=== PATIENT | female | born 1930 | race Caucasian/White ===

== ENCOUNTER 2020-04-06 19:34 | Observation (INO) ==
[~2020-04-06 19:34] MED LIST: Anticoagulation Consult 1 Each MC ONE
[2020-04-06 20:19] LABS: Basophils % 0.3 %; Eosinophils # 0.6 K/mcL (0.0-0.6); Eosinophils % 7.8 %; Hematocrit 32.6 % (35.3-44.9); Hemoglobin 10.7 g/dL (11.5-15.4); Immature Granulocytes % 0.4 % (0-4); Lymphocytes # 3.2 K/mcL (0.6-4.6); Mean Corpuscular HGB Conc 32.8 g/dL (31.6-35.5); Mean Corpuscular Hemoglobin 32.9 pg (28.0-33.3); Mean Corpuscular Volume 100.3 fL (83.0-100.0); Mean Platelet Volume 9.5 fL (9.4-12.4); Monocytes # 0.6 K/mcL (0.0-1.3); Monocytes % 8.6 %; Neutrophils # 2.9 K/mcL (1.6-8.9); Platelet Count 197 K/mcL (140-400); Red Blood Count 3.25 M/mcL (3.82-4.97); Red Cell Distribution Width 13.4 % (11.5-14.5); Segmented Neutrophils % 38.9 %; White Blood Count 7.3 K/mcL (4.3-11.1)
[2020-04-06 20:22] LABS: INR 2.7
[2020-04-06] MEDS ORDERED: Aspirin 81 MG TAB.CHEW PO STA (20:38)
[2020-04-06 20:40] LABS: BUN/Creatinine Ratio 25 (6-26); Blood Urea Nitrogen 28 mg/dL (8-23); Calcium 9.6 mg/dL (8.6-10.3); Carbon Dioxide 27 mEq/L (23-29); Chloride 104 mEq/L (98-107); Glucose 105 mg/dL (70-105); Osmolality,Calculated 296 (280-300); Potassium 3.6 mEq/L (3.5-5.1); Sodium 140 mEq/L (136-145); eGFR For African Americans 56 (> 60); eGFR For Non-African Americans 46 (> 60)
[2020-04-06 20:41] LABS: Troponin I < 0.03 ng/mL (< 0.04)
[2020-04-06] MEDS: Nitroglycerin 0.4 MG TAB.SUBL SL PRN ×2 (20:59→21:10)
[2020-04-06] MEDS ORDERED: Naloxone 0.4 MG/ML INJ IVP PRN (22:25)
[2020-04-06] MEDS ORDERED: Ondansetron 4 MG/2 ML VIAL IVP PRN (22:25)
[2020-04-06] MEDS ORDERED: Acetaminophen 325 MG TABLET PO PRN (23:57)
[2020-04-07] MEDS ORDERED: Morphine Sulfate 2 MG/ML SYRINGE IVP PRN
[2020-04-07 03:12] LABS: Basophils % 0.5 %; Eosinophils # 0.6 K/mcL (0.0-0.6); Eosinophils % 8.8 %; Hematocrit 30.7 % (35.3-44.9); Immature Granulocytes % 0.5 % (0-4); Lymphocytes # 2.5 K/mcL (0.6-4.6); Lymphocytes % 39.2 %; Mean Corpuscular HGB Conc 32.6 g/dL (31.6-35.5); Mean Corpuscular Hemoglobin 32.8 pg (28.0-33.3); Mean Corpuscular Volume 100.7 fL (83.0-100.0); Mean Platelet Volume 9.4 fL (9.4-12.4); Monocytes # 0.5 K/mcL (0.0-1.3); Monocytes % 8.1 %; Neutrophils # 2.7 K/mcL (1.6-8.9); Platelet Count 182 K/mcL (140-400); Red Blood Count 3.05 M/mcL (3.82-4.97); Red Cell Distribution Width 13.2 % (11.5-14.5); Segmented Neutrophils % 42.9 %; White Blood Count 6.3 K/mcL (4.3-11.1)
[2020-04-07 03:14] LABS: INR 2.9; Prothrombin Time 33.5 Seconds (9.4-12.1)
[2020-04-07 03:29] LABS: Alanine Aminotransferase 10 Units/L (7-52); Albumin 3.8 g/dL (3.5-5.7); Albumin/Globulin Ratio 1.4 (1.1-2.2); Alkaline Phosphatase 55 Units/L (34-104); Aspartate Amino Transferase 17 Units/L (13-39); BUN/Creatinine Ratio 28 (6-26); Bilirubin,Total 0.3 mg/dL (0.3-1.0); Blood Urea Nitrogen 28 mg/dL (8-23); Calcium 9.6 mg/dL (8.6-10.3); Carbon Dioxide 27 mEq/L (23-29); Chloride 105 mEq/L (98-107); Chol/HDL Ratio 3.8 (0-4.9); Cholesterol 193 mg/dL (< 200); Globulin 2.8 g/dL (2.4-3.5); Glucose 111 mg/dL (70-105); HDL Cholesterol 51 mg/dL (40-59); LDL Cholesterol,Calculated 122 mg/dL (< 100); Magnesium 1.9 mg/dL (1.6-2.6); Osmolality,Calculated 296 (280-300); Potassium 3.9 mEq/L (3.5-5.1); Sodium 140 mEq/L (136-145); Total Protein 6.6 g/dL (6.4-8.9); Triglycerides 100 mg/dL (< 150); eGFR For African Americans > 60 (> 60); eGFR For Non-African Americans 52 (> 60)
[2020-04-07 03:45] LABS: Thyroid Stimulating Hormone 0.674 mcIU/mL (0.340-5.600)
[2020-04-07 03:56] LABS: Folate > 22.3 ng/mL (3.0-16.0); Vitamin B12 565 pg/mL (250-1100)
[2020-04-07] MEDS ORDERED: Regadenoson 0.4 MG/5 ML SYRINGE IVP ONE (06:19)
[2020-04-07] MEDS ORDERED: Cyanocobalamin (B-12) 1,000 MCG TABLET PO SCH (09:00)
[2020-04-07] MEDS ORDERED: Furosemide 40 MG TABLET PO SCH (09:00)
[2020-04-07] MEDS ORDERED: Aspirin Enteric Coated 81 MG Tablet PO SCH (09:00)
[2020-04-07 15:28] VITALS: BP 144/68
[2020-04-07] MEDS ORDERED: Warfarin perPT PO PRN (18:00)
[2020-04-07] MEDS ORDERED: *HR* Warfarin 3 MG TABLET PO ONE (18:00)
== END 2020-04-07 17:45 | disposition home or self-care (01) ==
LOC: 3BNU 19:34 → EMEROOARM 19:34 → SUATTDRO 22:31 → 3BNU 23:23
PROVIDERS: ADMIT Internal Medicine; ATTEND Internal Medicine

== ENCOUNTER 2021-02-12 18:35 | Inpatient (IN) ==
[2021-02-12 19:39] LABS: Basophils % 0.2 %; Eosinophils % 0.4 %; Hematocrit 31.6 % (35.3-44.9); Hemoglobin 10.7 g/dL (11.5-15.4); Immature Granulocytes % 0.5 % (0-4); Lymphocytes # 1.3 K/mcL (0.6-4.6); Lymphocytes % 12.1 %; Mean Corpuscular HGB Conc 33.9 g/dL (31.6-35.5); Mean Corpuscular Volume 97.5 fL (83.0-100.0); Mean Platelet Volume 9.2 fL (9.4-12.4); Monocytes # 0.7 K/mcL (0.0-1.3); Neutrophils # 8.4 K/mcL (1.6-8.9); Platelet Count 257 K/mcL (140-400); Red Blood Count 3.24 M/mcL (3.82-4.97); Red Cell Distribution Width 12.7 % (11.5-14.5); Segmented Neutrophils % 79.8 %; White Blood Count 10.5 K/mcL (4.3-11.1)
[2021-02-12 19:46] LABS: INR 2.5; Prothrombin Time 27.7 Seconds (9.4-12.1)
[2021-02-12 19:49] LABS: Activated Partial Thrombo Time 35.2 Seconds (26.0-36.0)
[2021-02-12 19:59] LABS: Troponin I 0.28 ng/mL (< 0.04)
[2021-02-12] MEDS ORDERED: Aspirin 81 MG TAB.CHEW PO ONE (20:04)
[2021-02-12 20:17] LABS: Alanine Aminotransferase 11 Units/L (7-52); Albumin/Globulin Ratio 1.2 (1.1-2.2); Alkaline Phosphatase 100 Units/L (34-104); Aspartate Amino Transferase 18 Units/L (13-39); BUN/Creatinine Ratio 19 (6-26); Bilirubin,Direct 0.1 mg/dL (0.0-0.2); Bilirubin,Indirect 0.4 mg/dL (0.0-1.0); Bilirubin,Total 0.5 mg/dL (0.3-1.0); Blood Urea Nitrogen 17 mg/dL (8-23); Calcium 10.3 mg/dL (8.6-10.3); Carbon Dioxide 26 mEq/L (23-29); Chloride 101 mEq/L (98-107); Creatine Kinase 56 Units/L (30-223); Ethanol < 10 mg/dL (Less than 10); Globulin 3.3 g/dL (2.4-3.5); Glucose 204 mg/dL (70-105); Osmolality,Calculated 291 (280-300); Potassium 4.8 mEq/L (3.5-5.1); Sodium 137 mEq/L (136-145); Total Protein 7.3 g/dL (6.4-8.9); eGFR For African Americans > 60 (> 60); eGFR For Non-African Americans 58 (> 60)
[2021-02-12 21:34] LABS: Adenovirus Not Detected (Not Detect); Bordetella Pertussis Not Detected (Not Detect); Chlamydophila pneumoniae Not Detected (Not Detect); Coronavirus 229E Not Detected (Not Detect); Coronavirus HKU1 Not Detected (Not Detect); Coronavirus NL63 Not Detected (Not Detect); Coronavirus OC43 Not Detected (Not Detect); Human Metapneumovirus Not Detected (Not Detect); Human Rhinovirus/Enterovirus Not Detected (Not Detect); Influenza A Subtype 2009 H1 Not Detected (Not Detect); Influenza B Not Detected (Not Detect); Mycoplasma pneumoniae Not Detected (Not Detect); Parainfluenza Virus 1 Not Detected (Not Detect); Parainfluenza Virus 2 Not Detected (Not Detect); Parainfluenza Virus 3 Not Detected (Not Detect); Parainfluenza Virus 4 Not Detected (Not Detect); Respiratory Syncytial Virus Not Detected (Not Detect); SARS-CoV-2 Not Detected (Not Detect)
[2021-02-12 23:13] LABS: Bilirubin,Urine Negative (Negative); Blood,Urine Small (Negative); Clarity,Urine Clear (Clear); Color,Urine Yellow (Yellow); Glucose,Urine (UA) Normal (Normal); Hyaline Casts,Urine Few per lpf (None Seen); Ketones,Urine Negative (Negative); Leukocyte Esterase,Urine Moderate (Negative); Mucus,Urine Few per lpf (None-Few); Nitrite,Urine Negative (Negative); Protein,Urine Negative (Neg-Trace); RBC,Urine 0-3 per hpf (0-3); Renal Epithelial Cells,Urine Few per hpf (None-Few); Squamous Epithelial Cell,Urine Few per hpf (None-Few); Transitional Epi Cells,Urine Few per hpf (None-Few); Urobilinogen,Urine Normal (Normal)
[2021-02-12 23:23] LABS: Amphetamine Screen,Urine Negative ng/mL (Cutoff=1000); Barbiturate Screen,Urine Negative ng/mL (Cutoff=200); Benzodiazepines Screen,Urine Negative ng/mL (Cutoff=200); Cannabinoid Screen,Urine Negative ng/mL (Cutoff = 50); Cocaine Screen,Urine Negative ng/mL (Cutoff= 300); Opiate Screen,Urine Negative ng/mL (Cutoff=300); Phencyclidine Screen,Urine Negative ng/mL (Cutoff=25)
[2021-02-13] MEDS ORDERED: Naloxone 0.4 MG/ML INJ IVP PRN (01:02)
[2021-02-13] MEDS ORDERED: Ondansetron 4 MG/2 ML VIAL IVP PRN (01:02)
[2021-02-13] MEDS ORDERED: 0.9 % Sodium Chloride 1,000 ML IVC ONE (05:41)
[2021-02-13 07:25] LABS: Basophils % 0.1 %; Eosinophils # 0.2 K/mcL (0.0-0.6); Hematocrit 30.3 % (35.3-44.9); Hemoglobin 9.9 g/dL (11.5-15.4); Immature Granulocytes % 0.4 % (0-4); Lymphocytes # 1.7 K/mcL (0.6-4.6); Lymphocytes % 24.3 %; Mean Corpuscular HGB Conc 32.7 g/dL (31.6-35.5); Mean Corpuscular Hemoglobin 32.5 pg (28.0-33.3); Mean Corpuscular Volume 99.3 fL (83.0-100.0); Mean Platelet Volume 9.1 fL (9.4-12.4); Monocytes # 0.8 K/mcL (0.0-1.3); Neutrophils # 4.2 K/mcL (1.6-8.9); Platelet Count 233 K/mcL (140-400); Red Blood Count 3.05 M/mcL (3.82-4.97); Red Cell Distribution Width 13.2 % (11.5-14.5); Segmented Neutrophils % 60.2 %
[2021-02-13] MEDS ORDERED: Perflutren Lipid Microsphere 1.3 ML in 0.9 % Sodium Chloride 8.7 ML IVP PRN (07:41)
[2021-02-13 08:15] LABS: INR 2.7; Prothrombin Time 30.5 Seconds (9.4-12.1)
[2021-02-13 08:17] LABS: BUN/Creatinine Ratio 21 (6-26); Blood Urea Nitrogen 21 mg/dL (8-23); Carbon Dioxide 29 mEq/L (23-29); Chloride 102 mEq/L (98-107); Potassium 4.2 mEq/L (3.5-5.1); Sodium 139 mEq/L (136-145)
[2021-02-13 08:18] LABS: Alanine Aminotransferase 10 Units/L (7-52); Albumin 3.8 g/dL (3.5-5.7); Albumin/Globulin Ratio 1.2 (1.1-2.2); Alkaline Phosphatase 93 Units/L (34-104); Aspartate Amino Transferase 16 Units/L (13-39); Bilirubin,Total 0.5 mg/dL (0.3-1.0); Calcium 10.1 mg/dL (8.6-10.3); Globulin 3.2 g/dL (2.4-3.5); Glucose 113 mg/dL (70-105); Magnesium 1.8 mg/dL (1.6-2.6); Osmolality,Calculated 292 (280-300); Phosphorous 3.5 mg/dL (2.7-4.5); eGFR For African Americans > 60 (> 60); eGFR For Non-African Americans 53 (> 60)
[2021-02-13] MEDS ORDERED: levoFLOXacin 750 MG/150 ML 750 MG/150 ML BAG IVPB SCH (09:00)
[2021-02-13] MEDS: Aspirin Enteric Coated 81 MG Tablet PO SCH (09:06)
[2021-02-13 09:09] LABS: INR 2.9; Prothrombin Time 32.7 Seconds (9.4-12.1)
[2021-02-13] MEDS ORDERED: Warfarin perPT PO PRN (18:00)
[2021-02-13] MEDS ORDERED: *HR* Warfarin 1 MG TABLET PO ONE (18:00)
[2021-02-14 03:21] LABS: Prothrombin Time 33.2 Seconds (9.4-12.1)
[2021-02-14] MEDS: Aspirin Enteric Coated 81 MG Tablet PO SCH (07:36)
[2021-02-14 12:08] LABS: BUN/Creatinine Ratio 20 (6-26); Blood Urea Nitrogen 17 mg/dL (8-23); Calcium 10.1 mg/dL (8.6-10.3); Carbon Dioxide 25 mEq/L (23-29); Chloride 102 mEq/L (98-107); Glucose 154 mg/dL (70-105); Osmolality,Calculated 285 (280-300); Potassium 4.2 mEq/L (3.5-5.1); Sodium 135 mEq/L (136-145); eGFR For African Americans > 60 (> 60); eGFR For Non-African Americans > 60 (> 60)
[2021-02-14] MEDS: cefTRIAXone 1,000 MG in Water for inj. (sterile) 10 ML IVP SCH (14:07)
[2021-02-14] MEDS: Acetaminophen 325 MG TABLET PO PRN (14:10)
[2021-02-14] MEDS ORDERED: *HR* Warfarin 2 MG TABLET PO ONE (18:00)
[2021-02-15 01:39] LABS: Hemoglobin 9.8 g/dL (11.5-15.4); Mean Corpuscular HGB Conc 33.8 g/dL (31.6-35.5); Mean Corpuscular Hemoglobin 33.1 pg (28.0-33.3); Mean Platelet Volume 9.4 fL (9.4-12.4); Platelet Count 233 K/mcL (140-400); Red Blood Count 2.96 M/mcL (3.82-4.97)
[2021-02-15 01:47] LABS: INR 2.2
[2021-02-15 01:57] LABS: BUN/Creatinine Ratio 24 (6-26); Blood Urea Nitrogen 19 mg/dL (8-23); Calcium 9.8 mg/dL (8.6-10.3); Carbon Dioxide 26 mEq/L (23-29); Chloride 103 mEq/L (98-107); Glucose 126 mg/dL (70-105); Osmolality,Calculated 288 (280-300); Potassium 4.2 mEq/L (3.5-5.1); Sodium 137 mEq/L (136-145); eGFR For African Americans > 60 (> 60); eGFR For Non-African Americans > 60 (> 60)
[2021-02-15] MEDS: Aspirin Enteric Coated 81 MG Tablet PO SCH (10:05)
[2021-02-15] MEDS: Furosemide 40 MG TABLET PO SCH (10:06)
[2021-02-15] MEDS: levoFLOXacin 750 MG/150 ML 750 MG/150 ML BAG IVPB SCH (10:06)
[2021-02-15] MEDS: cefTRIAXone 1,000 MG in Water for inj. (sterile) 10 ML IVP SCH (10:08)
[2021-02-15] MEDS ORDERED: Warfarin perPT PO PRN (18:00)
[2021-02-15] MEDS ORDERED: *HR* Warfarin 2 MG TABLET PO ONE (18:30)
[2021-02-15] MEDS: Acetaminophen 325 MG TABLET PO PRN (23:28)
[2021-02-15] MEDS: Melatonin 3 MG TABLET PO PRN (23:29)
[2021-02-16] MEDS: Acetaminophen 325 MG TABLET PO PRN ×2 (03:37→20:26)
[2021-02-16 06:48] LABS: INR 2.6; Prothrombin Time 29.5 Seconds (9.4-12.1)
[2021-02-16] MEDS: Furosemide 40 MG TABLET PO SCH (08:41)
[2021-02-16] MEDS: Aspirin Enteric Coated 81 MG Tablet PO SCH (08:41)
[2021-02-16] MEDS ORDERED: *HR* Warfarin 1 MG TABLET PO ONE (18:00)
[2021-02-16] MEDS: Melatonin 3 MG TABLET PO PRN (20:26)
[2021-02-17 05:08] LABS: INR 2.7; Prothrombin Time 29.9 Seconds (9.4-12.1)
[2021-02-17] MEDS: Furosemide 40 MG TABLET PO SCH (08:42)
[2021-02-17] MEDS: Aspirin Enteric Coated 81 MG Tablet PO SCH (08:42)
[2021-02-17] MEDS: levoFLOXacin 750 MG/150 ML 750 MG/150 ML BAG IVPB SCH (08:42)
[2021-02-17 18:10] LABS: Hematocrit 30.7 % (35.3-44.9); Hemoglobin 10.4 g/dL (11.5-15.4); Mean Corpuscular HGB Conc 33.9 g/dL (31.6-35.5); Mean Corpuscular Hemoglobin 32.8 pg (28.0-33.3); Mean Corpuscular Volume 96.8 fL (83.0-100.0); Platelet Count 255 K/mcL (140-400); Red Blood Count 3.17 M/mcL (3.82-4.97); Red Cell Distribution Width 12.9 % (11.5-14.5)
[2021-02-17 18:11] LABS: White Blood Count 14.9 K/mcL (4.3-11.1)
[2021-02-17] MEDS: Melatonin 3 MG TABLET PO PRN (21:47)
[2021-02-17] MEDS: Acetaminophen 325 MG TABLET PO PRN (21:47)
[2021-02-18 04:41] LABS: INR 3.5; Prothrombin Time 39.4 Seconds (9.4-12.1)
[2021-02-18] MEDS: Acetaminophen 325 MG TABLET PO PRN ×2 (05:10→12:56)
[2021-02-18 08:07] LABS: Basophils % 0.3 %; Eosinophils % 0.2 %; Hematocrit 27.2 % (35.3-44.9); Hemoglobin 9.2 g/dL (11.5-15.4); Immature Granulocytes % 0.9 % (0-4); Lymphocytes # 1.4 K/mcL (0.6-4.6); Lymphocytes % 13.1 %; Mean Corpuscular HGB Conc 33.8 g/dL (31.6-35.5); Mean Corpuscular Hemoglobin 33.3 pg (28.0-33.3); Mean Corpuscular Volume 98.6 fL (83.0-100.0); Mean Platelet Volume 10.3 fL (9.4-12.4); Monocytes # 1.1 K/mcL (0.0-1.3); Monocytes % 10.7 %; Neutrophils # 7.9 K/mcL (1.6-8.9); Platelet Count 270 K/mcL (140-400); Red Blood Count 2.76 M/mcL (3.82-4.97); Red Cell Distribution Width 13.2 % (11.5-14.5); Segmented Neutrophils % 74.8 %; White Blood Count 10.6 K/mcL (4.3-11.1)
[2021-02-18 08:27] LABS: Calcium 9.9 mg/dL (8.6-10.3); Potassium 4.4 mEq/L (3.5-5.1)
[2021-02-18] MEDS: Furosemide 40 MG TABLET PO SCH (08:39)
[2021-02-18] MEDS: *HR* OxyCODONE/APAP 5/325 TABLET PO PRN (10:57)
[2021-02-18] MEDS: 0.9 % Sodium Chloride 1,000 ML IVC SCH (12:57)
[2021-02-18] MEDS: Melatonin 3 MG TABLET PO PRN (21:21)
[2021-02-19] MEDS: Acetaminophen 325 MG TABLET PO PRN (00:41)
[2021-02-19] MEDS: *HR* OxyCODONE/APAP 5/325 TABLET PO PRN ×2 (04:42→20:16)
[2021-02-19 05:44] LABS: Basophils % 0.3 %; Eosinophils # 0.1 K/mcL (0.0-0.6); Eosinophils % 1.8 %; Hematocrit 25.8 % (35.3-44.9); Hemoglobin 8.4 g/dL (11.5-15.4); Immature Granulocytes % 0.8 % (0-4); Lymphocytes # 1.5 K/mcL (0.6-4.6); Lymphocytes % 23.1 %; Mean Corpuscular HGB Conc 32.6 g/dL (31.6-35.5); Mean Corpuscular Hemoglobin 32.6 pg (28.0-33.3); Mean Platelet Volume 9.7 fL (9.4-12.4); Monocytes # 0.8 K/mcL (0.0-1.3); Monocytes % 11.6 %; Neutrophils # 4.1 K/mcL (1.6-8.9); Platelet Count 233 K/mcL (140-400); Red Blood Count 2.58 M/mcL (3.82-4.97); Red Cell Distribution Width 13.1 % (11.5-14.5); Segmented Neutrophils % 62.4 %; White Blood Count 6.6 K/mcL (4.3-11.1)
[2021-02-19 05:58] LABS: INR 2.9; Prothrombin Time 32.1 Seconds (9.4-12.1)
[2021-02-19 06:05] LABS: Calcium 9.3 mg/dL (8.6-10.3); Potassium 3.9 mEq/L (3.5-5.1)
[2021-02-19] MEDS: 0.9 % Sodium Chloride 1,000 ML IVC SCH (08:56)
[2021-02-19] MEDS: Melatonin 3 MG TABLET PO PRN (20:16)
[2021-02-20] MEDS: Aspirin Enteric Coated 81 MG Tablet PO SCH (09:07)
[2021-02-20 09:37] LABS: Hematocrit 29.7 % (35.3-44.9); Hemoglobin 9.2 g/dL (11.5-15.4); Mean Corpuscular Hemoglobin 31.9 pg (28.0-33.3); Mean Corpuscular Volume 103.1 fL (83.0-100.0); Mean Platelet Volume 9.6 fL (9.4-12.4); Platelet Count 229 K/mcL (140-400); Red Blood Count 2.88 M/mcL (3.82-4.97); Red Cell Distribution Width 13.2 % (11.5-14.5); White Blood Count 4.9 K/mcL (4.3-11.1)
[2021-02-20 10:18] LABS: BUN/Creatinine Ratio 40 (6-26); Blood Urea Nitrogen 36 mg/dL (8-23); Calcium 9.8 mg/dL (8.6-10.3); Carbon Dioxide 23 mEq/L (23-29); Chloride 110 mEq/L (98-107); Glucose 95 mg/dL (70-105); Osmolality,Calculated 300 (280-300); Potassium 4.1 mEq/L (3.5-5.1); Sodium 141 mEq/L (136-145); eGFR For African Americans > 60 (> 60); eGFR For Non-African Americans 59 (> 60)
[2021-02-20 10:32] VITALS: BP 139/55
[2021-02-20 10:34] LABS: INR 1.9; Prothrombin Time 21.9 Seconds (9.4-12.1)
== END 2021-02-20 15:52 | disposition home health service (06) | DRG 281 ==
LOC: 2ANU 18:35 → EMEROOARM 18:35 → SUATTDRO 23:46 → 2ANU 02-13 00:49
PROVIDERS: ADMIT Internal Medicine; ATTEND General Practice